=== PATIENT | female | born 1980 | race Caucasian/White ===

== ENCOUNTER 2019-05-01 12:45 | Inpatient (IN) | payer BC ==
[2019-05-01] MEDS ORDERED: SODIUM CHLORIDE 0.9% 500 ML 500 ML IV STA (13:13)
[2019-05-01 13:52] LABS: Basophils % (A) 1 %; Eosinophils # (A) 0.3 k/uL (0-0.7); Eosinophils % (A) 4 %; HCT 40.5 % (34.0-46.0); HGB 13.4 gm/dL (11.4-16.0); Lymphocytes % (A) 25 %; MCH 27.8 pg (25.0-35.0); MCV 84.2 fL (80.0-100.0); Mean Platelet Volume 6.7; Monocytes # (A) 0.4 k/uL (0-1.0); Monocytes % (A) 4 %; Neutrophils # (A) 5.4 k/uL (1.3-7.7); Neutrophils % (A) 66 %; Platelet Count 278 k/uL (150-450); RBC 4.82 m/uL (3.80-5.40); RDW 15.9 % (11.5-15.5); WBC 8.2 k/uL (3.8-10.6)
[2019-05-01 13:57] LABS: Appearance,Urine Clear (Clear); Bacteria,Urine Rare /hpf; Bilirubin,Urine Negative (Negative); Blood,Urine Negative (Negative); Color,Urine Yellow; Glucose,Urine (UA) Negative (Negative); Ketones,Urine Negative (Negative); Leukocyte Esterase,Urine Large (Negative); Mucus,Urine Rare /hpf; Nitrite,Urine Negative (Negative); PH, Urine 7.5 (5.0-8.0); Protein,Urine Negative (Negative); RBC,Urine 1 /hpf (0-5); Specific Gravity,Urine 1.018 (1.001-1.035); Squamous Epithelial Cell,Urine 4 /hpf (0-4); Urobilinogen,Urine <2.0 mg/dL (<2.0); WBC,Urine 10 /hpf (0-5)
[2019-05-01 14:02] LABS: ALT 35 U/L (9-52); AST 59 U/L (14-36); African American GFR (CKD) >90 (>60 ml/min/1.73 sqM); Albumin 4.4 g/dL (3.5-5.0); Alkaline Phosphatase 54 U/L (38-126); Anion Gap 11 mmol/L; Blood Urea Nitrogen 10 mg/dL (7-17); Carbon Dioxide 22 mmol/L (22-30); Chloride 108 mmol/L (98-107); Glucose 86 mg/dL (74-99); Non-African American GFR(CKD) >90 (>60 ml/min/1.73 sqM); Potassium 3.8 mmol/L (3.5-5.1); Sodium 141 mmol/L (137-145); Total Bilirubin 0.5 mg/dL (0.2-1.3); Total Protein 7.8 g/dL (6.3-8.2)
--- NOTE | 2019-05-01 15:34 | US ---
EXAMINATION TYPE: US gallbladder DATE OF EXAM: 05/01/2019 COMPARISON: NONE CLINICAL HISTORY: Pain. abd pain after eating EXAM MEASUREMENTS: Liver Length: 16.4 cm Gallbladder Wall: 0.3 cm CBD: 0.5 cm Right Kidney: 10.3 x 4.8 x 5.3 cm Pancreas: wnl Liver: wnl Gallbladder: multiple large, mobile stones seen, borderline wall thickening Evidence for sonographic Clemons's sign: YES CBD: wnl Right Kidney: wnl IMPRESSION: Multiple gallstones. Mild gallbladder wall thickening suggestive of cholecystitis. No dil ated ducts.
[2019-05-01] MEDS ORDERED: PIPERACILLIN-TAZOBACTAM 3.375 GM in SODIUM CHLORIDE 0.9% 100 ML IVPB STA (16:13)
[2019-05-01] MEDS ORDERED: MORPHINE SULFATE 4 MG/ML SYRINGE IV PRN (16:31)
[2019-05-01] MEDS ORDERED: NALOXONE 0.4 MG/ML 1 ML VIAL IV PRN (16:31)
--- NOTE | 2019-05-01 16:31 | ED ---
General Adult HPI - General Chief complaint: Abdominal Pain Stated complaint: tone, abdominal pain radiating to back Time Seen by Provider: 05/01/19 13:13 Source: patient, RN notes reviewed, old records reviewed Mode of arrival: ambulatory Limitations: no limitations - History of Present Illness Initial comments: 38-year-old female patient no pertinent past medical history presents ED chief complaint of epigastric, right upper quadrant pain. Patient reports that after she eats she expresses pain in her right upper quadrant region. Patient reports this has been ongoing for months, however has gotten worse recently. Patient reports that the pain began one hour after eating today she experienced continual pain in the right upper quadrant. Patient reports nausea without emesis. Denies any other complaints. Systemic: Pt denies fatigue, fever/chills, rash. Pt denies weakness, night sweats, weight loss. Neuro: Pt denies headache, visual disturbances, syncope or pre-syncope. HEENT: Pt denies ocular discharge or irritation, otalgia, rhinorrhea, pharyngitis or notable lymphadenopathy. Cardiopulmonary: Pt denies chest pain, SOB, heart palpitations, dyspnea on exertion. Abdominal/GI: Pt denies v/d. : Pt denies dysuria, burning w/ urination, frequency/urgency. Denies new onset urinary or bowel incontinence. MSK: Pt denies myalgia, loss of strength or function in extremities. Neuro: Pt denies new onset weakness, paresthesias. - Related Data Allergies Allergy/AdvReac Type Severity Reaction Status Date / Time No Known Allergies Allergy Verified 05/01/19 12:56 Review of Systems ROS Statement: Those systems with pertinent positive or pertinent negative responses have been documented in the HPI. ROS Other: All systems not noted in ROS Statement are negative. Past Medical History Past Medical History: No Reported History History of Any Multi-Drug Resistant Organisms: None Reported Past Surgical History: Section, Tonsillectomy Past Psychological History: No Psychological Hx Reported Smoking Status: Never smoker Past Alcohol Use History: Occasional Past Drug Use History: None Reported General Exam - General Exam Comments Initial Comments: Constitutional: NAD, AOX3, Pt has pleasant affect. HEENT: NC/AT, trachea midline, neck supple, no lymphadenopathy. Posterior pharynx non erythematous, without exudates. External ears appear normal, without discharge. Mucous membranes moist. Eyes PERRLA, EOM intact. There is no scleral icterus. No pallor noted. Cardiopulmonary: RRR, no murmurs, rubs or gallops, no JVD noted. Lungs CTAB in anterior and posterior montiel. No peripheral edema. Abdominal exam: Abdomen soft and non-distended. Abdomen tender to palpation upper quadrant, Clemons sign positive, no other areas of abdominal tenderness.. Bowel sounds active in LLQ. No hepatosplenomegaly. No ecchymosis Neuro: CN II-XII grossly intact. No nuchal rigidity. No raccon eyes, no ricci sign, no hemotympanum. No cervical spinal tenderness. MSK: No posterior calf tenderness bilaterally, homans sign negative bilaterally. Posterior tibialis and radial pulse +2 bilaterally. Sensation intact in upper and lower extremities. Full active ROM in upper and lower extremities, 5/5 stregnth. Limitations: no limitations Course Vital Signs 05/01/19 05/01/19 12:57 16:09 Temperature 98.6 F Pulse Rate 91 63 Respiratory 18 16 Rate Blood Pressure 138/83 118/60 O2 Sat by Pulse 100 100 Oximetry Medical Decision Making - Medical Decision Making 38-year-old female patient presents to ED with symptoms consistent with biliary colic and gallbladder pathology. Patient vital signs stable, afebrile. CBC, CMP noncompressive. Lactic acid 2.1. UA large leukocyte esterase, 10 white blood cells. Ultrasound displayed multiple gallstones, mild gallbladder wall thickening Zosyn cholecystitis, no dilated ducts. Case was discussed with attending physician Dr. Haq and fashion director party plan sales surgeon Dr. Truong. Patient be admitted and initiated on Zosyn. - Lab Data Result diagrams: 05/01/19 13:30 05/01/19 13:30 Lab Results 05/01/19 05/01/19 05/01/19 Range/Units 13:30 13:30 13:30 WBC 8.2 (3.8-10.6) k/uL RBC 4.82 (3.80-5.40) m/uL Hgb 13.4 (11.4-16.0) gm/dL Hct 40.5 (34.0-46.0) % MCV 84.2 (80.0-100.0) fL MCH 27.8 (25.0-35.0) pg MCHC 33.0 (31.0-37.0) g/dL RDW 15.9 H (11.5-15.5) % Plt Count 278 (150-450) k/uL Neutrophils % 66 % Lymphocytes % 25 % Monocytes % 4 % Eosinophils % 4 % Basophils % 1 % Neutrophils # 5.4 (1.3-7.7) k/uL Lymphocytes # 2.0 (1.0-4.8) k/uL Monocytes # 0.4 (0-1.0) k/uL Eosinophils # 0.3 (0-0.7) k/uL Basophils # 0.0 (0-0.2) k/uL Sodium (137-145) mmol/L Potassium (3.5-5.1) mmol/L Chloride (98-107) mmol/L Carbon Dioxide (22-30) mmol/L Anion Gap mmol/L BUN (7-17) mg/dL Creatinine (0.52-1.04) mg/dL Est GFR (CKD-EPI)AfAm (>60 ml/min/1.73 sqM) Est GFR (CKD-EPI)NonAf (>60 ml/min/1.73 sqM) Glucose (74-99) mg/dL Plasma Lactic Acid Conner (0.7-2.0) mmol/L Calcium (8.4-10.2) mg/dL Total Bilirubin (0.2-1.3) mg/dL AST (14-36) U/L ALT (9-52) U/L Alkaline Phosphatase (38-126) U/L Total Protein (6.3-8.2) g/dL Albumin (3.5-5.0) g/dL Lipase (23-300) U/L Urine Color Yellow Urine Appearance Clear (Clear) Urine pH 7.5 (5.0-8.0) Ur Specific Junction 1.018 (1.001-1.035) Urine Protein Negative (Negative) Urine Glucose (UA) Negative (Negative) Urine Ketones Negative (Negative) Urine Blood Negative (Negative) Urine Nitrite Negative (Negative) Urine Bilirubin Negative (Negative) Urine Urobilinogen <2.0 (<2.0) mg/dL Ur Leukocyte Esterase Large H (Negative) Urine RBC 1 (0-5) /hpf Urine WBC 10 H (0-5) /hpf Ur Squamous Epith Cells 4 (0-4) /hpf Urine Bacteria Rare H (None) /hpf Urine Mucus Rare H (None) /hpf Urine HCG, Qual Not Detected (Not Detectd) 05/01/19 05/01/19 Range/Units 13:30 13:30 WBC (3.8-10.6) k/uL RBC (3.80-5.40) m/uL Hgb (11.4-16.0) gm/dL Hct (34.0-46.0) % MCV (80.0-100.0) fL MCH (25.0-35.0) pg MCHC (31.0-37.0) g/dL RDW (11.5-15.5) % Plt Count (150-450) k/uL Neutrophils % % Lymphocytes % % Monocytes % % Eosinophils % % Basophils % % Neutrophils # (1.3-7.7) k/uL Lymphocytes # (1.0-4.8) k/uL Monocytes # (0-1.0) k/uL Eosinophils # (0-0.7) k/uL Basophils # (0-0.2) k/uL Sodium 141 (137-145) mmol/L Potassium 3.8 (3.5-5.1) mmol/L Chloride 108 H (98-107) mmol/L Carbon Dioxide 22 (22-30) mmol/L Anion Gap 11 mmol/L BUN 10 (7-17) mg/dL Creatinine 0.58 (0.52-1.04) mg/dL Est GFR (CKD-EPI)AfAm >90 (>60 ml/min/1.73 sqM) Est GFR (CKD-EPI)NonAf >90 (>60 ml/min/1.73 sqM) Glucose 86 (74-99) mg/dL Plasma Lactic Acid Conner 2.1 H* (0.7-2.0) mmol/L Calcium 9.0 (8.4-10.2) mg/dL Total Bilirubin 0.5 (0.2-1.3) mg/dL AST 59 H (14-36) U/L ALT 35 (9-52) U/L Alkaline Phosphatase 54 (38-126) U/L Total Protein 7.8 (6.3-8.2) g/dL Albumin 4.4 (3.5-5.0) g/dL Lipase 312 H (23-300) U/L Urine Color Urine Appearance (Clear) Urine pH (5.0-8.0) Ur Specific Junction (1.001-1.035) Urine Protein (Negative) Urine Glucose (UA) (Negative) Urine Ketones (Negative) Urine Blood (Negative) Urine Nitrite (Negative) Urine Bilirubin (Negative) Urine Urobilinogen (<2.0) mg/dL Ur Leukocyte Esterase (Negative) Urine RBC (0-5) /hpf Urine WBC (0-5) /hpf Ur Squamous Epith Cells (0-4) /hpf Urine Bacteria (None) /hpf Urine Mucus (None) /hpf Urine HCG, Qual (Not Detectd) Disposition Clinical Impression: Acute cholecystitis Disposition: ADMITTED IP TO THIS HOSP Condition: Serious Is patient prescribed a controlled substance at d/c from ED?: No Referrals: Vin Callaway MD [Primary Care Provider] - 1-2 days
[2019-05-01] MEDS ORDERED: diphenhydrAMINE 50 MG/ML 1 ML VIAL IVP STA (17:10)
[2019-05-01 17:50] VITALS: BMI 30.1
[2019-05-01] MEDS ORDERED: diphenhydrAMINE 50 MG/ML 1 ML VIAL IVP PRN (18:14)
[2019-05-01] MEDS: SODIUM CHLORIDE 0.9% 1,000 ML IV SCH (21:49)
[2019-05-02] MEDS ORDERED: PIPERACILLIN-TAZOBACTAM 3.375 GM in SODIUM CHLORIDE 0.9% 100 ML IVPB SCH ×4
[2019-05-02] MEDS: metroNIDAZOLE-NS PMX 500 MG in SALINE 1 100ML.BAG IVPB SCH ×5 (00:03→23:48)
[2019-05-02 10:12] LABS: Basophils % (A) 1 %; Eosinophils # (A) 0.3 k/uL (0-0.7); Eosinophils % (A) 4 %; HGB 13.2 gm/dL (11.4-16.0); Lymphocytes # (A) 1.8 k/uL (1.0-4.8); Lymphocytes % (A) 25 %; MCHC 33.1 g/dL (31.0-37.0); MCV 84.5 fL (80.0-100.0); Mean Platelet Volume 6.7; Monocytes # (A) 0.3 k/uL (0-1.0); Monocytes % (A) 4 %; Neutrophils # (A) 4.7 k/uL (1.3-7.7); Neutrophils % (A) 65 %; Platelet Count 224 k/uL (150-450); RBC 4.74 m/uL (3.80-5.40); RDW 15.7 % (11.5-15.5); WBC 7.2 k/uL (3.8-10.6)
[2019-05-02 10:20] LABS: ALT 28 U/L (9-52); AST 21 U/L (14-36); African American GFR (CKD) >90 (>60 ml/min/1.73 sqM); Albumin 3.9 g/dL (3.5-5.0); Alkaline Phosphatase 60 U/L (38-126); Anion Gap 8 mmol/L; Blood Urea Nitrogen 7 mg/dL (7-17); Calcium 8.5 mg/dL (8.4-10.2); Carbon Dioxide 21 mmol/L (22-30); Chloride 111 mmol/L (98-107); Glucose 86 mg/dL (74-99); Non-African American GFR(CKD) >90 (>60 ml/min/1.73 sqM); Sodium 140 mmol/L (137-145); Total Bilirubin 0.6 mg/dL (0.2-1.3); Total Protein 7.1 g/dL (6.3-8.2)
--- NOTE | 2019-05-02 11:27 | P.GSHP ---
History of Present Illness H&P Date: 05/02/19 CHIEF COMPLAINT: Acute cholecystitis HISTORY OF PRESENT ILLNESS: The patient is a 38 year old female who reports 2 year history of epigastric and right upper quadrant pain that was not investigated by her doctors. She presented to the ER yesterday after going camping with her friends and had a fatty breakfast followed by 2 hours later acute sharp epigastric pain with radiation to her back and right shoulder. She had dry heaves. No fevers or chills. She had nausea. She had an ultrasound of the gallbladder consistent with gallstones and acute cholecystitis. PAST MEDICAL HISTORY: See list. PAST SURGICAL HISTORY: See list. MEDICATIONS: See list. ALLERGIES: See list. SOCIAL HISTORY: See list. FAMILY HISTORY: See list. REVIEW OF ORGAN SYSTEMS: CONSTITUTIONAL: No fevers or chills. No recent weight loss. EYES: Denies any trouble with vision. No glasses. HEENT: No difficulties with hearing. No nosebleeds. No difficulty swallowing. RESPIRATORY: Denies pneumonia. Denies any troubles with breathing or dyspnea on exertion. CARDIOVASCULAR: Denies any chest pain, palpitations, or recent heart attacks. GASTROINTESTINAL: Denies fatty food intolerance. Denies change in bowel habits and gas bloat. GENITOURINARY: Denies any blood in urine or increased urinary frequency. NEUROLOGICAL: Denies any numbness or tingling along the distal extremities. No seizure disorders or headaches. MUSCULOSKELETAL: Denies any back pain, stiffness or joint arthritis. SKIN: No current skin cancer. No rash. PSYCHIATRIC: Denies current depression or suicidal thoughts. ENDOCRINE: Denies current thyroid disorders. Denies any blood sugar glucose intolerance. HEME/LYMPHATIC: Denies any lumps and bumps around the neck. No recent deep venous thrombosis. ALLERGY/IMMUNOLOGY: No immunoglobulin therapy. No immune deficiencies. BREAST: Denies current breast lumps, pain or nipple discharge. PHYSICAL EXAM: VITALS: Reviewed CONSTITUTIONAL: Well developed and in no acute distress. EYES: Conjuctivae without sclera icterus. Pupils are equally round and reactive to light. Extraocular movements grossly intact. Wears glasses. HEAD, EARS, NOSE, THROAT: Moist buccal mucosa. Head is atraumatic, normocephalic. Hears conversational speech. No nasal drainage. Good dentition. NECK: Supple. No JV distention. No thyroidomegaly. RESPIRATORY: Non-labored respirations and equal bilateral excursions. No gross wheezes. CARDIOVASCULAR: Regular rate and rhythm. Extremities without moderate edema. Palpable 2+ radial pulses. ABDOMEN: Soft, tender at right upper quadrant. No peritonitis LYMPH: No neck lymphadenopathy. No axillary lymphadenopathy. MUSCULOSKELETAL: Gait within normal limits. Range of motion bilateral upper extremities within normal limits. Nail and fingers with good capillary refill. SKIN: Warm and well perfused with good skin turgor. NEUROLOGIC: Cranial nerves I through XII grossly intact. Sensation upper and extremities intact. No focal or lateralizing signs. PSYCH: Appropriate affect. Alert and oriented to person, place and time. Displays appropriate insight. STUDIES: I personally reviewed her gallbladder ultrasound with two large stones over 1-cm found. Gallbladder wall thickened over 2 mm RADIOLOGY: Report reviewed with ubaldo-cholecystic fluid consistent with acute cholecystitis. LABS: Total bilirubin normal ASSESSMENT: 1. Acute cholecystitis PLAN: 1. Continue antibiotics 2. Robotic cholecystectomy described. 3. Inpatient hospitalization over 2 nights described. 4. DVT prophylaxis 5. Low fat diet at this time with NPO after midnight 6. Benefits and risks of surgery reviewed. Thank you for this kind consultation. Past Medical History Past Medical History: No Reported History History of Any Multi-Drug Resistant Organisms: None Reported Past Surgical History: Section, Tonsillectomy Additional Past Surgical History / Comment(s): "SLOW TO COME OUT FROM ANESTHESIA" Additional Past Anesthesia/Blood Transfusion Reaction / Comment(s): "SLOW TO COME OUT OF IT" Past Psychological History: No Psychological Hx Reported Smoking Status: Never smoker Past Alcohol Use History: Occasional Past Drug Use History: None Reported - Past Family History Father History Unknown: Yes Family Medical History: Congestive Heart Failure (CHF), Coronary Artery Disease (CAD), Hypertension Mother History Unknown: Yes Family Medical History: Cancer, Diabetes Mellitus Additional Family Medical History / Comment(s): GLAUCOMA Medications and Allergies Home Medications Medication Instructions Recorded Confirmed Type No Known Home Medications 05/01/19 05/01/19 History Allergies Allergy/AdvReac Type Severity Reaction Status Date / Time bactroban AdvReac Itching Uncoded 05/01/19 17:38 ZOSYN AdvReac Itching Uncoded 05/01/19 18:16 Surgical - Exam Vital Signs Temp Pulse Resp BP Pulse Ox 98.6 F 91 18 138/83 100 05/01/19 12:57 05/01/19 12:57 05/01/19 12:57 05/01/19 12:57 05/01/19 12:57 Results - Labs 05/02/19 09:56 05/02/19 09:56 Abnormal Lab Results - Last 24 Hours (Table) 05/01/19 05/01/19 05/01/19 Range/Units 13:30 13:30 13:30 RDW 15.9 H (11.5-15.5) % Chloride 108 H (98-107) mmol/L Carbon Dioxide (22-30) mmol/L Plasma Lactic Acid Conner (0.7-2.0) mmol/L AST 59 H (14-36) U/L Lipase 312 H (23-300) U/L Ur Leukocyte Esterase Large H (Negative) Urine WBC 10 H (0-5) /hpf Urine Bacteria Rare H (None) /hpf Urine Mucus Rare H (None) /hpf 05/01/19 05/02/19 05/02/19 Range/Units 13:30 09:56 09:56 RDW 15.7 H (11.5-15.5) % Chloride 111 H (98-107) mmol/L Carbon Dioxide 21 L (22-30) mmol/L Plasma Lactic Acid Conner 2.1 H* (0.7-2.0) mmol/L AST (14-36) U/L Lipase (23-300) U/L Ur Leukocyte Esterase (Negative) Urine WBC (0-5) /hpf Urine Bacteria (None) /hpf Urine Mucus (None) /hpf Diabetes panel 05/01/19 05/02/19 Range/Units 13:30 09:56 Sodium 141 140 (137-145) mmol/L Potassium 3.8 4.0 (3.5-5.1) mmol/L Chloride 108 H 111 H (98-107) mmol/L Carbon Dioxide 22 21 L (22-30) mmol/L BUN 10 7 (7-17) mg/dL Creatinine 0.58 0.53 (0.52-1.04) mg/dL Glucose 86 86 (74-99) mg/dL Calcium 9.0 8.5 (8.4-10.2) mg/dL AST 59 H 21 (14-36) U/L ALT 35 28 (9-52) U/L Alkaline Phosphatase 54 60 (38-126) U/L Total Protein 7.8 7.1 (6.3-8.2) g/dL Albumin 4.4 3.9 (3.5-5.0) g/dL Calcium panel 05/01/19 05/02/19 Range/Units 13:30 09:56 Calcium 9.0 8.5 (8.4-10.2) mg/dL Albumin 4.4 3.9 (3.5-5.0) g/dL Pituitary panel 05/01/19 05/02/19 Range/Units 13:30 09:56 Sodium 141 140 (137-145) mmol/L Potassium 3.8 4.0 (3.5-5.1) mmol/L Chloride 108 H 111 H (98-107) mmol/L Carbon Dioxide 22 21 L (22-30) mmol/L BUN 10 7 (7-17) mg/dL Creatinine 0.58 0.53 (0.52-1.04) mg/dL Glucose 86 86 (74-99) mg/dL Calcium 9.0 8.5 (8.4-10.2) mg/dL Adrenal panel 05/01/19 05/02/19 Range/Units 13:30 09:56 Sodium 141 140 (137-145) mmol/L Potassium 3.8 4.0 (3.5-5.1) mmol/L Chloride 108 H 111 H (98-107) mmol/L Carbon Dioxide 22 21 L (22-30) mmol/L BUN 10 7 (7-17) mg/dL Creatinine 0.58 0.53 (0.52-1.04) mg/dL Glucose 86 86 (74-99) mg/dL Calcium 9.0 8.5 (8.4-10.2) mg/dL Total Bilirubin 0.5 0.6 (0.2-1.3) mg/dL AST 59 H 21 (14-36) U/L ALT 35 28 (9-52) U/L Alkaline Phosphatase 54 60 (38-126) U/L Total Protein 7.8 7.1 (6.3-8.2) g/dL Albumin 4.4 3.9 (3.5-5.0) g/dL Assessment and Plan (1) Right upper quadrant abdominal pain Current Visit: Yes Status: Acute Code(s): R10.11 - RIGHT UPPER QUADRANT PAIN SNOMED Code(s): 937197679 (2) Gallstones Current Visit: Yes Status: Acute Code(s): K80.20 - CALCULUS OF GALLBLADDER W/O CHOLECYSTITIS W/O OBSTRUCTION SNOMED Code(s): 797257499 (3) Gallstones with obstruction of gallbladder Current Visit: Yes Status: Acute Code(s): K80.21 - CALCULUS OF GALLBLADDER W/O CHOLECYSTITIS WITH OBSTRUCTION SNOMED Code(s): 00832986 (4) Acute cholecystitis Current Visit: Yes Status: Acute Code(s): K81.0 - ACUTE CHOLECYSTITIS SNOMED Code(s): 15940614 (5) Nausea after anesthesia Current Visit: Yes Status: Acute Code(s): T88.59XA - OTHER COMPLICATIONS OF ANESTHESIA, INITIAL ENCOUNTER; R11.0 - NAUSEA SNOMED Code(s): 355252272
[2019-05-02] MEDS: SODIUM CHLORIDE 0.9% 1,000 ML IV SCH ×3 (12:08→23:54)
[2019-05-03] MEDS: metroNIDAZOLE-NS PMX 500 MG in SALINE 1 100ML.BAG IVPB SCH ×3 (06:07→18:37)
[2019-05-03] MEDS: SODIUM CHLORIDE 0.9% 1,000 ML IV SCH (06:35)
[2019-05-03] MEDS ORDERED: SODIUM CHLORIDE 0.9% 100 ML IV ONE (09:29)
[2019-05-03] MEDS ORDERED: fentaNYL (PF) 50 MCG/ML 2 ML AMP ONE (09:33)
[2019-05-03] MEDS ORDERED: LIDOCAINE 1% INJ 10MG/ML (20 ML MDV) ONE (09:33)
[2019-05-03] MEDS ORDERED: WATER FOR INJECTION, STERILE 10 ML VIAL IV ONE (09:33)
[2019-05-03] MEDS ORDERED: HYDROmorphone (PF) 1 MG/ML ONE (09:33)
[2019-05-03] MEDS ORDERED: PROPOFOL 10 MG/ML 20 ML VIAL IV ONE (09:33)
[2019-05-03] MEDS ORDERED: GLYCOPYRROLATE 0.2 MG/ML 2 ML VIAL ONE (09:33)
[2019-05-03] MEDS ORDERED: MIDAZOLAM 2 MG/2 ML VIAL ONE (09:33)
[2019-05-03] MEDS ORDERED: KETOROLAC 30 MG/ML 1 ML VIAL ONE (09:33)
[2019-05-03] MEDS ORDERED: NEOSTIGMINE 1 MG/ML 10 ML VIAL ONE (09:33)
[2019-05-03] MEDS ORDERED: INDOCYANINE GREEN 25 MG VIAL IV ONE (09:33)
[2019-05-03] MEDS ORDERED: ROCURONIUM BROMIDE 10 MG/ML 10 ML VIAL IV ONE (09:33)
[2019-05-03] MEDS ORDERED: ONDANSETRON 4 MG/2 ML VIAL IVP ONE (09:39)
[2019-05-03] MEDS ORDERED: DEXAMETHASONE SOD PHOS (MDV) 100 MG/10 ML VIAL IVP ONE (09:40)
[2019-05-03] MEDS ORDERED: SCOPOLAMINE 1.5MG/72HR PATCH TRANSDERM ONE (09:40)
[2019-05-03] MEDS ORDERED: BUPIVACAIN-EPI 0.25%-1:200,000 30 ML VIAL SQ ONE (09:57)
[2019-05-03] MEDS ORDERED: HEPARIN SODIUM,PORCINE 5,000 UNIT/ML 1 ML VIAL SQ ONE (11:00)
[2019-05-03] MEDS ORDERED: LACTATED RINGERS 1,000 ML IV ONE (11:04)
[2019-05-03] MEDS ORDERED: NALOXONE 0.4 MG/ML 1 ML VIAL IV PRN (11:20)
[2019-05-03] MEDS ORDERED: ACETAMINOPHEN TAB 325 MG TAB PO PRN (11:20)
[2019-05-03] MEDS ORDERED: HYDROcodone/APAP 5-325MG 1 EACH TAB PO PRN (11:20)
--- NOTE | 2019-05-03 11:25 | P.OP ---
Date of Procedure: 05/03/19 Description of Procedure: SURGEON: KYMBERLY ORDAZ MD PREOPERATIVE DIAGNOSES: 1. Right upper quadrant abdominal pain 2. Symptomatic gallstones 3. Abnormal ultrasound with acute cholecystitis 4. Postop nausea or vomiting POSTOPERATIVE DIAGNOSES: 1. Right upper quadrant abdominal pain 2. Symptomatic gallstones 3. Abnormal ultrasound with acute cholecystitis 4. Postop nausea or vomiting OPERATION: Robotic-assisted da Emily Xi laparoscopic cholecystectomy, multiport with FIREFL Y ESTIMATED BLOOD LOSS: 10 mL. SPECIMENS REMOVED: Gallbladder. COMPLICATIONS: None. OPERATIVE FINDINGS: 1. Chronic cholecystitis 2. Duct of Luschka was also identified and cauterized. 3. Console time 35 minutes INDICATIONS: The patient is a 38-year-old female who presents with cholelcystitis. Surgical intervention with a laparoscopic cholecystectomy was described at length including injury to the biliary tree, bleeding, infection, need for further surgery. Informed consent was obtained. Robotic assisted laparoscopic approach was described. Benefits and risks of the procedure including but not limited to bleeding, infection, injury to the biliary tree was described. Informed consent was obtained. DESCRIPTION OF PROCEDURE: Patient was brought to the operating room, placed in supine position. After general induction, the abdomen had been prepped and draped in standard sterile fashion. The robotic da Emily XI system was primed. After a timeout protocol was performed, the patient had been prepped and draped in standard sterile fashion. The patient was injected with indocyanine green. A 5 mm 0 degrees laparoscopic trocar entry was performed along the left upper quadrant. The abdomen insufflated to 15 mmHg pressure which was tolerated well. Diagnostic laparoscopy demonstrated no injury to bowel viscera or mesentery. The liver surface was unremarkable. Next, two 8 mm robotic ports were placed along the right upper abdomen. The camera 8-mm port was maintained along the epigastrium. Another 8 mm port was placed along the left upper abdominal wall after exchanging the 5 mm port. Please note that the ports were placed at least 10 to 15 cm away from the target anatomy of the gallbladder. The robot was docked along the left lateral abdomen. The patient was repositioned in reverse Trendelenburg position. Using a grasper for arm 3, a grasper for arm 4, including hook cautery for arm 1, the robotic system was docked and primed as described. Instruments were interchanged by the assistant store director including hook cautery, Bovie cautery and clip appliers. I had sat at the console. The gallbladder fundus was retracted over the dome of the liver. Initial attention was brought to the infundibulum which was gently retracted in the inferior lateral approach. Using a grasper, the cystic duct including the cystic artery was carefully skeletonized. FIREFLY was used to identify the cystic artery and cystic structures. A critical view of safety was obtained. Duct of Luschka was also identified and cauterized. Large PLASTIC clips were used throughout the entire case. Using a clip electro mechanic 2 clips were placed proximally, and 1 clip was placed between the infundibulum and cystic duct and divided using cautery. Next, the cystic artery was similarly clipped and cauterized. Electro-Bovie cautery was used to remove the gallbladder from the hepatic fossa. Hemostasis was checked and found to be adequate. The robot was undocked. I re-scrubbed into the case. Using a 10 mm Endo Catch bag via the left upper quadrant incision, the specimen was removed from the abdominal cavity. All pneumoperitoneum instruments were evacuated from the abdominal cavity. The incisions were reapproximated using 4-0 Monocryl in an interrupted subcuticular fashion. Fascial defects were less than 8 mm in size. Please note along the trocar sites, local anesthetic was placed as a field block prior to insertion of all instruments. Liquid glue was applied to the skin. At the end of the procedure needle, sponge, and instrument count had been verified correct by the surgical appliance fitter. The patient was transferred to postanesthesia care unit in stable condition. Intraoperative films were shared with the patient's family who were very pleased with the level of care.
[2019-05-03 20:00] VITALS: BP 116/69; PULSE 67; RESP 16; TEMP 98.3
[2019-05-03] MEDS ORDERED: HEPARIN SODIUM,PORCINE 5,000 UNIT/ML 1 ML VIAL SQ SCH (21:00)
--- NOTE | 2019-05-03 21:34 | P.DS ---
Providers Date of admission: 05/03/19 11:20 Expected date of discharge: 05/03/19 Attending physician: Shanon Truong Primary care physician: Vin Callaway - Discharge Diagnosis(es) (1) Right upper quadrant abdominal pain Status: Acute (2) Gallstones Status: Acute (3) Gallstones with obstruction of gallbladder Status: Acute (4) Acute cholecystitis Status: Acute (5) Nausea after anesthesia Status: Acute Hospital Course: POSTOPERATIVE DIAGNOSES: 1. Right upper quadrant abdominal pain 2. Symptomatic gallstones 3. Abnormal ultrasound with acute cholecystitis 4. Postop nausea or vomiting COURSE: The patient is a 38-year-old female who presents with cholelcystitis. Surgical intervention with a laparoscopic cholecystectomy was described at length including injury to the biliary tree, bleeding, infection, need for further surgery. Informed consent was obtained. Robotic assisted laparoscopic approach was described. Benefits and risks of the procedure including but not limited to bleeding, infection, injury to the biliary tree was described. Informed consent was obtained. Post procedure, she was tolerating diet. Her pain was controlled. Discharge instructions were reviewed. Procedures: OPERATION: Robotic-assisted da Emily Xi laparoscopic cholecystectomy, multiport with FIREFLY ESTIMATED BLOOD LOSS: 10 mL. SPECIMENS REMOVED: Gallbladder. COMPLICATIONS: None. OPERATIVE FINDINGS: 1. Chronic cholecystitis 2. Duct of Luschka was also identified and cauterized. 3. Console time 35 minutes Patient Condition at Discharge: Good Plan - Discharge Summary Discharge Rx Participant: Yes New Discharge Prescriptions: New Acetaminophen Tab [Tylenol Tab] 650 mg PO Q4H PRN #30 tablet PRN Reason: Pain Ibuprofen [Motrin] 600 mg PO Q8HR PRN #30 tab PRN Reason: Pain Discharge Medication List Acetaminophen Tab [Tylenol Tab] 650 mg PO Q4H PRN #30 tablet 05/03/19 [Rx] Ibuprofen [Motrin] 600 mg PO Q8HR PRN #30 tab 05/03/19 [Rx] Follow up Appointment(s)/Referral(s): Vin Callaway MD [Primary Care Provider] - 1-2 days Shanon Truong MD [STAFF PHYSICIAN] - 1 Week Activity/Diet/Wound Care/Special Instructions: Tylenol or motrin as needed for pain You may shower. No soaking or tub baths Limited activity until your follow up appointment with Dr. Truong No lifting greater than 10 pounds Discharge Disposition: HOME SELF-CARE
== END 2019-05-03 20:10 | disposition home or self-care (01) | DRG 419 ==
LOC: EC 12:45 → 6PED 16:48 → OBSVTOIN 05-03 11:20
PROVIDERS: ADMIT Surgery Plastic and Reconstructive Surgery; ATTEND Surgery Plastic and Reconstructive Surgery
PROC: 8E0W4CZ Robotic Assisted Procedure of Trunk Region, Percutaneous Endoscopic Approach (ICD-10-PCS; 2019-05-03)
PROC: 0FT44ZZ Resection of Gallbladder, Percutaneous Endoscopic Approach (ICD-10-PCS; principal; 2019-05-03 09:25)
DX: K80.01 Calculus of gallbladder with acute cholecystitis with obstruction (principal); R11.0 Nausea; Z88.1 Allergy status to other antibiotic agents; Z82.49 Family history of ischemic heart disease and other diseases of the circulatory system; Z83.3 Family history of diabetes mellitus; Z80.9 Family history of malignant neoplasm, unspecified; Z83.511 Family history of glaucoma
CPT/HCPCS: 36415; 76705; 80053; 81001; 81025; 83605; 83690; 85025; 88304; 96361; 96365; 96375; 99285